=== PATIENT | female | born 1990 | race Caucasian/White ===

== ENCOUNTER 2017-12-31 04:05 | Emergency (ER) | payer OTHER, MEDICAID ==
[~2017-12-31 04:05] MED LIST: ACE500 PO; BACDS PO; OND4 PO; OXYC-865 PO; PHENA100 PO; PREN-123 PO; UNKNOWN ABX
--- NOTE | 2017-12-31 04:09 | ER Report ---
History and Physical Time Seen By MD: 04:09 (ABHISHEK BERGERON DO) Time Seen By MD: 08:06 (SHANDRA HAMM DO) HPI/ROS CHIEF COMPLAINT: Lower abdominal pain HISTORY OF PRESENT ILLNESS: 27-year-old female presents ambulatory to the ER complaining of severe lower abdominal pain that began while having intercourse at approximately 2 AM. She presents to the ER at 4 AM with severe lower abdominal pain. She has no vaginal bleeding. She reports that her last menstrual period was approximately 5 weeks ago. She wears a newer ring. She's not been having any heavy vaginal bleeding or spotting. She uses a NuvaRing for control. Patient notes nausea but no vomiting. She has no dysuria from a chair hematuria. Patient's blood type is noted is O+ on previous delivery here in 2013. REVIEW OF SYSTEMS: Respiratory: No cough, no dyspnea. Cardiovascular: No chest pain, no palpitations. Gastrointestinal: As above Musculoskeletal: No back pain. (ABHISHEK BERGERON DO) Allergies: Coded Allergies: zolpidem (Verified Allergy, Intermediate, HALLUCINATIONS, 12/31/17) latex (Verified Allergy, Mild, 12/31/17) Home Meds Active Scripts Oxycodone/Acetaminophen (OXYCODONE/ACETAMINOPHEN 5MG/325 MG) 5 Mg/325 Mg Tab, 1 TAB PO Q4-6H for PAIN for 3 Days, #10 Prov:SHANDRA HAMM DO 12/31/17 Discontinued Reported Medications Vits W-Ca,Fe,Fa(<1MG) ( FORMULA) 1 Each Tablet, 1 EACH PO DAILY 08/09/13 Oxycodone Hcl/Acetaminophen (PERCOCET 5-325 MG TABLET) 1 Each Tablet, 1-2 EACH PO Q4H for PAIN, #30 0 Refills 08/09/13 Reviewed Nurses Notes: Yes Old Medical Records Reviewed: Yes (ABHISHEK BERGERON DO) Hx Smoking: No Exposure to Second Hand Smoke?: No (ABHISHEK BERGERON DO) Constitutional Vital Sign - Last 24 Hours 12/31/17 12/31/17 12/31/17 12/31/17 04:09 04:09 06:00 06:05 Temp 98.7 Pulse 94 97 Resp 18 B/P (MAP) 119/70 (86) 119/70 107/61 (76) Pulse Ox 100 97 O2 Delivery Room Air 6/17/18 6/17/18 07:05 07:35 Pulse 73 Pulse Ox 92 92 Intake and Output 12/31/17 12/31/17 01/01/18 15:00 23:00 07:00 Intake Total 1000 ml Balance 1000 ml (SHANDRA HAMM DO) Physical Exam General Appearance: The patient is alert, has no immediate need for airway protection and no current signs of toxicity. Vital signs stable, afebrile, pulse ox normal Eyes: Pupils equal and round no injection. Respiratory: Chest is non tender, lungs are clear to auscultation. Cardiac: regular rate and rhythm Gastrointestinal: Abdomen is soft and non tender, no masses, bowel sounds normal. Musculoskeletal: Neck: Neck is supple and non tender. Extremities have full range of motion and are non tender. Skin: No rashes or lesions. DIFFERENTIAL DIAGNOSIS: After history and physical exam differential diagnosis was considered for abdominal pain in a female including but not limited to ovarian cyst, pelvic inflammatory disease, ovarian torsion, urinary tract infection, and appendicitis. (ABHISHEK BERGERON DO) Medical Decision Making Data Points Result Diagram: 12/31/17 0500 12/31/17 0500 Laboratory Hematology Test 12/31/17 04:32 12/31/17 05:00 12/31/17 05:15 Urine Color Colorless Urine Clarity Clear Urine pH 5.0 pH (4.8-9.5) Urine Specific [place] 1.003 Urine Protein Negative mg/dL (NEGATIVE) Urine Glucose (UA) Negative mg/dL (NEGATIVE) Urine Ketones Negative mg/dL (NEGATIVE) Urine Blood Small (NEGATIVE) Urine Nitrite Negative (NEGATIVE) Urine Bilirubin Negative (NEGATIVE) Urine Urobilinogen Negative mg/dL (0.2-1.9) Urine Leukocyte Esterase Negative (NEGATIVE) Urine RBC None /HPF (0-2/HPF) Urine WBC <1 /HPF (0-5/HPF) Urine Squamous Epithelial Cells Few /LPF (</=FEW) Urine Bacteria Few /HPF (NONE-FEW) Urine Mucus None /HPF (NONE-FEW) Urine HCG, Qualitative Positive (NEGATIVE) Red Blood Count 4.35 M/uL (4.17-5.56) Mean Corpuscular Volume 89.8 fL (80.0-96.0) Mean Corpuscular Hemoglobin 31.4 pg (26.0-33.0) Mean Corpuscular Hemoglobin Concent 35.0 g/dL (32.0-36.0) Red Cell Distribution Width 13.1 % (11.5-14.5) Mean Platelet Volume 7.0 fL (7.2-11.1) Neutrophils (%) (Auto) 52.0 % (39.4-72.5) Lymphocytes (%) (Auto) 39.2 % (17.6-49.6) Monocytes (%) (Auto) 6.8 % (4.1-12.4) Eosinophils (%) (Auto) 1.1 % (0.4-6.7) Basophils (%) (Auto) 0.9 % (0.3-1.4) Nucleated RBC Relative Count (auto) 0.0 /100WBC Neutrophils # (Auto) 3.1 K/uL (2.0-7.4) Lymphocytes # (Auto) 2.3 K/uL (1.3-3.6) Monocytes # (Auto) 0.4 K/uL (0.3-1.0) Eosinophils # (Auto) 0.1 K/uL (0.0-0.5) Basophils # (Auto) 0.1 K/uL (0.0-0.1) Nucleated RBC Absolute Count (auto) 0.00 K/uL Sodium Level 144 mmol/L (137-145) Potassium Level 3.5 mmol/L (3.5-5.0) Chloride Level 108 mmol/L (98-107) Carbon Dioxide Level 19 mmol/L (22-31) Blood Urea Nitrogen 7 mg/dl (7-18) Creatinine 0.60 mg/dl (0.52-1.04) Glomerular Filtration Rate Calc > 60.0 Random Glucose 100 mg/dl (75-110) Calcium Level 8.7 mg/dl (8.4-10.2) Total Bilirubin 0.2 mg/dl (0.2-1.3) Aspartate Amino Transf (AST/SGOT) 20 U/L (0-35) Alanine Aminotransferase (ALT/SGPT) 21 U/L (0-56) Alkaline Phosphatase 56 U/L (0-126) Total Protein 7.3 g/dl (6.3-8.2) Albumin 4.3 g/dl (3.5-5.0) Human Chorionic Gonadotropin, Quant 206 mIU/ml Chemistry Test 12/31/17 04:32 12/31/17 05:00 12/31/17 05:15 Urine Color Colorless Urine Clarity Clear Urine pH 5.0 pH (4.8-9.5) Urine Specific [place] 1.003 Urine Protein Negative mg/dL (NEGATIVE) Urine Glucose (UA) Negative mg/dL (NEGATIVE) Urine Ketones Negative mg/dL (NEGATIVE) Urine Blood Small (NEGATIVE) Urine Nitrite Negative (NEGATIVE) Urine Bilirubin Negative (NEGATIVE) Urine Urobilinogen Negative mg/dL (0.2-1.9) Urine Leukocyte Esterase Negative (NEGATIVE) Urine RBC None /HPF (0-2/HPF) Urine WBC <1 /HPF (0-5/HPF) Urine Squamous Epithelial Cells Few /LPF (</=FEW) Urine Bacteria Few /HPF (NONE-FEW) Urine Mucus None /HPF (NONE-FEW) Urine HCG, Qualitative Positive (NEGATIVE) White Blood Count 5.9 k/uL (4.5-11.0) Red Blood Count 4.35 M/uL (4.17-5.56) Hemoglobin 13.7 g/dL (12.0-16.0) Hematocrit 39.1 % (34.0-47.0) Mean Corpuscular Volume 89.8 fL (80.0-96.0) Mean Corpuscular Hemoglobin 31.4 pg (26.0-33.0) Mean Corpuscular Hemoglobin Concent 35.0 g/dL (32.0-36.0) Red Cell Distribution Width 13.1 % (11.5-14.5) Platelet Count 280 K/uL (150-450) Mean Platelet Volume 7.0 fL (7.2-11.1) Neutrophils (%) (Auto) 52.0 % (39.4-72.5) Lymphocytes (%) (Auto) 39.2 % (17.6-49.6) Monocytes (%) (Auto) 6.8 % (4.1-12.4) Eosinophils (%) (Auto) 1.1 % (0.4-6.7) Basophils (%) (Auto) 0.9 % (0.3-1.4) Nucleated RBC Relative Count (auto) 0.0 /100WBC Neutrophils # (Auto) 3.1 K/uL (2.0-7.4) Lymphocytes # (Auto) 2.3 K/uL (1.3-3.6) Monocytes # (Auto) 0.4 K/uL (0.3-1.0) Eosinophils # (Auto) 0.1 K/uL (0.0-0.5) Basophils # (Auto) 0.1 K/uL (0.0-0.1) Nucleated RBC Absolute Count (auto) 0.00 K/uL Glomerular Filtration Rate Calc > 60.0 Calcium Level 8.7 mg/dl (8.4-10.2) Total Bilirubin 0.2 mg/dl (0.2-1.3) Aspartate Amino Transf (AST/SGOT) 20 U/L (0-35) Alanine Aminotransferase (ALT/SGPT) 21 U/L (0-56) Alkaline Phosphatase 56 U/L (0-126) Total Protein 7.3 g/dl (6.3-8.2) Albumin 4.3 g/dl (3.5-5.0) Human Chorionic Gonadotropin, Quant 206 mIU/ml Urinalysis Test 12/31/17 04:32 Urine Color Colorless Urine Clarity Clear Urine pH 5.0 pH (4.8-9.5) Urine Specific [place] 1.003 Urine Protein Negative mg/dL (NEGATIVE) Urine Glucose (UA) Negative mg/dL (NEGATIVE) Urine Ketones Negative mg/dL (NEGATIVE) Urine Blood Small (NEGATIVE) Urine Nitrite Negative (NEGATIVE) Urine Bilirubin Negative (NEGATIVE) Urine Urobilinogen Negative mg/dL (0.2-1.9) Urine Leukocyte Esterase Negative (NEGATIVE) Urine RBC None /HPF (0-2/HPF) Urine WBC <1 /HPF (0-5/HPF) Urine Squamous Epithelial Cells Few /LPF (</=FEW) Urine Bacteria Few /HPF (NONE-FEW) Urine Mucus None /HPF (NONE-FEW) Urine HCG, Qualitative Positive (NEGATIVE) (SHANDRA HAMM DO) EKG/Imaging Imaging Results: Ultrasound of the transvaginal ultrasound was obtained. The results of the study are [normal]. [The study was read by the radiologist]. [I viewed the images myself on the PACS system]. (ABHISHEK BERGERON DO) Imaging Please see official report. I spoke with the radiologist from [facility] who reported that there was a 2.5-2.9 cm echogenic material with debris in the pelvis which will need to be followed up with [facility]. No intrauterine was identified. EXAMINATION: Transvaginal pelvic ultrasound with duplex Doppler evaluation HISTORY: Vaginal bleeding, positive hCG COMPARISON: None. FINDINGS: The uterus is normal in size. The endometrium measures 1.8 cm. No intrauterine gestational sac. The left ovary measures 1.7 x 1.5 cm and is normal with expected blood flow. The right ovary measures 2.7 x 2.5 x 1.5 cm and contains a few follicles. Expected blood flow in the right ovary. There is echogenic free fluid in the pelvis measuring 2.9 x 2.5 x 2.3 cm. No adnexal mass or additional adnexal abnormality identified. IMPRESSION: 1. No intrauterine gestational sac identified. 2. Echogenic free fluid in the pelvis measuring up to 2.9 x 2.5 cm of indeterminate etiology. This could represent hemorrhagic fluid related to hemorrhagic ovarian cyst rupture. Hemorrhagic free fluid related to ruptured ectopic cannot be excluded given history of positive hCG. Notably no adnexal mass/adnexal ectopic is identified. Close clinical follow-up is recommended. (SHANDRA HAMM DO) ED Course/Re-evaluation Clinical Indication for ER IV: Hydration, IV Access ED Course Patient was admitted to an examination room. H&P was done. The differential diagnosis was considered. On clinical examination. Patient is very tender lower abdomen. Her vital signs are stable. A urinalysis and interpreting tests were ordered. Patient was medicated with Percocet and Phenergan orally. Unfortunately, her urinary test returned positive. A peripheral IV was established. She was given 1 L saline. A quantitative hCG was ordered which returned at 206. Transvaginal ultrasound was ordered to rule out ovarian torsion, and ectopic . (ABHISHEK BERGERON DO) ED Course I assumed care of the patient from Dr. Bergeron. Patient is a 27-year-old female here with complaints of pelvic pain after intercourse earlier this morning. She is found to have a beta hCG of 208 as well as a small pocket of free fluid which is echogenic in nature with debris in the pelvis. I spoke with Dr. Castro who recommended follow-up in clinic on Monday. Patient voiced that she follows up with Sophie lyons and I advised the patient that she needs a follow-up tomorrow with and that she'll need repeat ultrasound as well as trending beta-hCG. Patient voiced understanding. I provided her a script for Percocet for pain control. She agreed to return promptly should develop worsening pain, fevers, chills, vaginal discharge or bleeding. Decision to Disposition Date: Dec 31, 2017 Decision to Disposition Time: 08:09 (SHANDRA HAMM DO) Depart Departure Latest Vital Signs Vital Signs Date Time Temp Pulse Resp B/P (MAP) Pulse Ox O2 Delivery O2 Flow Rate FiO2 12/31/17 07:35 73 92 12/31/17 06:00 107/61 (76) 12/31/17 04:09 98.7 18 Room Air (SHANDRA HAMM DO) Impression: Primary Impression: Abdominal pain Additional Impression: Condition: Improved Disposition: HOME OR SELF-CARE New Scripts Oxycodone/Acetaminophen (OXYCODONE/ACETAMINOPHEN 5MG/325 MG) 5 Mg/325 Mg Tab 1 TAB PO Q4-6H for PAIN for 3 Days, #10 Prov: SHANDRA HAMM DO 12/31/17 Patient Instructions: Oxycodone/Acetaminophen (By mouth), Pelvic Pain in Women (ED) Additional Instructions: Please follow up with your [facility] tomorrow. Your beta hCG was found to be mildly elevated at 208 and need to follow up with your [facility] tomorrow in order to have these levels trended as well as to have a repeat ultrasound. You were given a prescription for Percocet. You may take 1 tablet every 6 hours as needed for pain. Please do not operate any heavy machinery or drive a vehicle while taking this medication as it may cause drowsiness. Please return promptly should develop worsening pain, fevers, chills, abdominal pain, nausea, vomiting , vaginal bleeding or vaginal discharge. A small pocket of fluid was identified on ultrasound in your pelvis and will need to be followed up with promptly by [facility]. Problem Qualifiers Primary Impression: Abdominal pain Abdominal location: lower abdomen, unspecified Qualified Codes: R10.30 - Lower abdominal pain, unspecified Additional Impression: Weeks of gestation: less than 8 weeks Qualified Codes: Z3A.01 - Less than 8 weeks gestation of ABHISHEK BERGERON DO Dec 31, 2017 04:09 SHANDRA HAMM DO Dec 31, 2017 08:14
[2017-12-31] MEDS ORDERED: PROMETHAZINE HCL 25 MG TAB PO ONE (04:25)
[2017-12-31] MEDS ORDERED: NS(*) 0.9% 1000 ML BAG 1,000 ML IV ONE (04:53)
[2017-12-31 05:12] LABS: PLATELET COUNT, AUTOMATED 280 K/uL (150-450)
[2017-12-31] MEDS ORDERED: fentaNYL CITR 100 MCG/2 ML AMP IVP ONE (05:50)
--- NOTE | 2017-12-31 08:09 | RADIOLOGY IMAGING REPORT ---
FACILITY[place] [facility] [place]IENT NAME: Taylor Duncan : 1990 MR: [id number] V: [id number] EXAM DATE: ORDERING PHYSICIAN: ABHISHEK POTTER TECHNOLOGIST: Location: [facility] [place] Patient: Taylor Duncan : 1990 Visit/Account:[id number] Date of Sevice: 12/31/2017 EXAMINATION: Transvaginal pelvic ultrasound with duplex Doppler evaluation HISTORY: Vaginal bleeding, positive hCG COMPARISON: None. FINDINGS: The uterus is normal in size. The endometrium measures 1.8 cm. No intrauterine gestational sac. The left ovary measures 1.7 x 1.5 cm and is normal with expected blood flow. The right ovary measures 2.7 x 2.5 x 1.5 cm and contains a few follicles. Expected blood flow in the right ovary. There is echogenic free fluid in the pelvis measuring 2.9 x 2.5 x 2.3 cm. No adnexal mass or addition al adnexal abnormality identified. IMPRESSION: 1. No intrauterine gestational sac identified. 2. Echogenic free fluid in the pelvis measuring up to 2.9 x 2.5 cm of indeterminate etiology. This co uld represent hemorrhagic fluid related to hemorrhagic ovarian cyst rupture. Hemorrhagic free fluid r elated to ruptured ectopic cannot be excluded given history of positive hCG. Notably no adnexal mass/adnexal ectopic is identified. Close clinical follow-up is recommended. Results were called to covering clinician on 12/31/2017 7:55 AM. Report Dictated By: Joey Neal MD at 12/31/2017 7:44 AM Report E-Signed By: Joey Neal MD at 12/31/2017 7:55 AM WSN:[id number]
[2017-12-31] MEDS ORDERED: PER PO (08:11)
[2017-12-31 08:21] VITALS: BP 92/55
== END 2017-12-31 08:27 | disposition home or self-care (01) ==
LOC: ER 04:12
DX: R10.30 Lower abdominal pain, unspecified (principal); Z33.1 Pregnant state, incidental
CPT/HCPCS: 76830; 81001; 81025; 84702; 85025; 96361; 96374; 99284; J3010; J7030; Q0169; 82040; 82247; 82310; 82374; 82435; 82565; 82947; 84075; 84132; 84155; 84295; 84450; 84460; 84520

== ENCOUNTER → 2018-01-02 | Outpatient (CLI) | payer OTHER ==
[~2018-01-02] MED LIST changes: +PER PO
== END ==
LOC: LAB 08:28
PROVIDERS: ATTEND Student in an Organized Health Care Education/Training Program
DX: Z34.90 Encounter for supervision of normal pregnancy, unspecified, unspecified trimester (principal)
CPT/HCPCS: 36415; 84702

== ENCOUNTER → 2018-01-06 | Outpatient (CLI) | payer OTHER | LOC: LAB 08:57 | DX: O00.109 Unspecified tubal pregnancy without intrauterine pregnancy (principal) | CPT/HCPCS: 36415; 84702 ==

== ENCOUNTER → 2018-01-09 | Outpatient (CLI) | payer OTHER | LOC: LAB 10:20 | PROVIDERS: ATTEND Obstetrics & Gynecology | DX: O00.109 Unspecified tubal pregnancy without intrauterine pregnancy (principal) | CPT/HCPCS: 36415; 84702 ==

== ENCOUNTER → 2018-01-13 | Outpatient (CLI) | payer OTHER | LOC: LAB 10:00 | PROVIDERS: ATTEND Obstetrics & Gynecology | DX: O00.109 Unspecified tubal pregnancy without intrauterine pregnancy (principal) | CPT/HCPCS: 36415; 84702 ==

== ENCOUNTER → 2018-01-22 | Outpatient (CLI) | payer OTHER | LOC: LAB 11:58 | PROVIDERS: ATTEND Obstetrics & Gynecology | DX: O00.109 Unspecified tubal pregnancy without intrauterine pregnancy (principal) | CPT/HCPCS: 36415; 84702 ==

== ENCOUNTER → 2018-01-30 | Outpatient (CLI) | payer SELFPAY | LOC: LAB 15:35 | PROVIDERS: ATTEND Obstetrics & Gynecology | DX: O00.109 Unspecified tubal pregnancy without intrauterine pregnancy (principal) | CPT/HCPCS: 36415; 84702 ==